=== PATIENT | male | born 1970 | race Caucasian/White ===

== ENCOUNTER 2017-03-23 23:15 | Emergency (ER) | payer OTHER ==
[~2017-03-23 23:15] MED LIST: ACETAMINOPHEN PO; ASPIRIN PO; ATIVAN PO; BAYER ASPIRIN325 M1; BUSPAR; ERYTHROMYCIN O3.5 GM OD; FLEXERIL10 MG; HYDROCODON-ACE1 EAC7 PO; IBUPROFEN PO; LISINOPRIL PO; NABUMETONE PO; NEURONTIN; NORFLEX100 M1 PO; PEN-VEE K PO; TYLENOL #3 PO; VOLTAREN75 MG PO; ZESTRIL5 MG PO
[2017-03-23] MEDS ORDERED: METHADONE PO (23:27)
== END 2017-03-23 23:59 | disposition home or self-care (01) ==
LOC: SED 23:15
DX: S31.050A Open bite of lower back and pelvis without penetration into retroperitoneum, initial encounter (principal); I10 Essential (primary) hypertension; F17.210 Nicotine dependence, cigarettes, uncomplicated; Z79.899 Other long term (current) drug therapy; W57.XXXA Bitten or stung by nonvenomous insect and other nonvenomous arthropods, initial encounter; Y92.9 Unspecified place or not applicable
CPT/HCPCS: 99282

== ENCOUNTER 2017-05-26 17:45 | Emergency (ER) | payer OTHER ==
[~2017-05-26 17:45] MED LIST changes: +METHADONE PO
== END 2017-05-26 20:00 | disposition home or self-care (01) ==
LOC: SED 17:45
DX: H66.91 Otitis media, unspecified, right ear (principal); F17.200 Nicotine dependence, unspecified, uncomplicated
CPT/HCPCS: 99282

== ENCOUNTER 2017-05-30 15:25 | Emergency (ER) | payer OTHER ==
[2017-05-30] MEDS ORDERED: AMOXIL500 M2 PO (15:58)
== END 2017-05-30 17:23 | disposition home or self-care (01) ==
LOC: SED 15:25
DX: H60.93 Unspecified otitis externa, bilateral (principal); F17.210 Nicotine dependence, cigarettes, uncomplicated; Z79.899 Other long term (current) drug therapy
CPT/HCPCS: 99282